=== PATIENT | female | born 1990 | race Caucasian/White ===

== ENCOUNTER 2018-01-30 19:25 | Outpatient (CLI) | payer MEDICAID ==
[~2018-01-30] VITALS: Ht 157.5 cm; Wt 86.4 kg
[~2018-01-30 19:25] MED LIST: CHILD'S MULTI1 CTB PO; FISH OIL SUPER1 SGL PO; IRON324 M1 PO; MOTRIN 600600 MG/TAB PO; PERCOCET 325 MG1 TA2 PO
[2018-01-30 19:51] VITALS: BP 131/67; PULSE 77; TEMP 97.7
[2018-01-30] MEDS ORDERED: OMEGA-3 1000 MG1 CAP PO (19:57)
[2018-01-30 21:20] VITALS: BP 111/58; PULSE 71
== END 2018-01-30 21:30 | disposition home or self-care (01) ==
LOC: LDRO 19:25
DX: O62.9 Abnormality of forces of labor, unspecified (principal); Z3A.37 37 weeks gestation of pregnancy

== ENCOUNTER 2018-02-19 10:38 | Inpatient (IN) | payer MEDICAID ==
[2018-02-19] VITALS (22 sets, daily range): BP systolic 83–146; BP diastolic 43–86; PULSE 60–95; TEMP 98.2–98.5
[~2018-02-19] VITALS: Ht 157.5 cm; Wt 90.9 kg
[~2018-02-19 10:38] MED LIST changes: +OMEGA-3 1000 MG1 CAP PO
[2018-02-19 11:20] LABS: BASO # 0.1 (0.0-0.2); BASO % 0.5 % (0.0-2.0); EOS # 0.1 (0.0-0.7); EOS % 0.5 % (0-4.0); GRAN # 6.4 (1.4-6.5); GRAN % 67.6 % (42.2-75.2); LYMPH # 2.3 (1.2-3.4); LYMPH % 24.2 % (20.0-51.0); MEAN CELL VOLUME 94 fl (80.0-100.0); MEAN CORPUSCULAR HGB CONC 30 g/dl (33.0-37.0); MEAN PLATELET VOLUME 12.2 fl (7.4-10.4); MONO # 0.6 (0.1-0.6); MONO % 5.8 % (1.7-9.3); PLATELET COUNT 149 K/mm3 (130-400); RED BLOOD COUNT 3.67 M/mm3 (4.10-5.30); REDCELL DISTRIBUTION WIDTH-CV 13.9 % (11.5-14.5)
[2018-02-19 11:23] LABS: HEMATOCRIT 34.4 % (37.0-47.0); HEMOGLOBIN 10.2 g/dl (12.5-16.0); MEAN CORPUSCULAR HEMOGLOBIN 28 pg (27.0-31.0)
[2018-02-20 01:00] VITALS: BP 103/49; PULSE 70; TEMP 98.7
[2018-02-20 07:25] LABS: HEMATOCRIT 30.9 % (37.0-47.0); HEMOGLOBIN 9.7 g/dl (12.5-16.0)
[2018-02-20 07:30] VITALS: BP 122/77; PULSE 73; TEMP 97.7
[2018-02-20] MEDS ORDERED: PERCOCET 325 MG1 TA2 PO (11:18)
[2018-02-20] MEDS ORDERED: IBU600 MG PO (11:18)
== END 2018-02-20 17:25 | disposition home or self-care (01) | DRG 774 ==
LOC: LDRO 10:38 → LDR 10:55 → OB 17:49
PROVIDERS: Obstetrics & Gynecology
PROC: 10D07Z6 Extraction of Products of Conception, Vacuum, Via Natural or Artificial Opening (ICD-10-PCS; principal; 2018-02-19)
DX: O98.82 Other maternal infectious and parasitic diseases complicating childbirth (principal); Z3A.16 16 weeks gestation of pregnancy; Z37.0 Single live birth; O76 Abnormality in fetal heart rate and rhythm complicating labor and delivery; A74.9 Chlamydial infection, unspecified
CPT/HCPCS: J2400; J2590; J7120

== ENCOUNTER → 2019-05-18 | Outpatient (CLI) | payer MEDICAID ==
[~2019-05-18] MED LIST changes: +IBU600 MG PO
== END ==
LOC: MC.RAD 10:49
DX: N63.10 Unspecified lump in the right breast, unspecified quadrant (principal)
CPT/HCPCS: G0279